=== PATIENT | male | born 1965 | race Hispanic/Latino ===

== ENCOUNTER 2020-04-03 15:19 | Emergency (ER) | payer MEDICAID ==
--- NOTE | 2020-04-03 12:31 | Anesthesia Consultation ---
Anesthesia Consult and Med Hx Date of service: 04/03/20 - Airway Anesthetic Teeth Evaluation: Good ROM Head & Neck: Adequate Mental/Hyoid Distance: Adequate Mallampati Class: Class III Intubation Access Assessment: Possibly Difficult - Pulmonary Exam CTA: Yes - Cardiac Exam Cardiac Exam: RRR - Pre-Operative Health Status ASA Pre-Surgery Classification: ASA3 Proposed Anesthetic Plan: General - Pulmonary Hx Smoking: Yes (1 PPD X 30 YRS) Hx Respiratory Symptoms: No Hx Sleep Apnea: No (ZEHRA PRE SCREEN HIGH RISK) - Cardiovascular System Hx Hypertension: Yes Hx Heart Attack/AMI: No - Central Nervous System CVA: Yes (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
--- NOTE | 2020-04-03 12:34 | Anesthesia Day of Surgery ---
Anesthesia Day of Surgery - Day of Surgery Patient Examined: Yes Patient H&P Reviewed: Yes Patient is NPO: Yes
[2020-04-03] MEDS: MIDAZOLAM 2 MG/2 ML INJ IV NR ×2 (13:05→13:45)
[2020-04-03] MEDS: fentaNYL 100 MCG/2 ML INJ IV SCH ×2 (13:12→13:45)
[~2020-04-03 15:19] MED LIST: ACETAMINOPHEN 500 MG TAB PO SCH; BUPIVACAINE/PF (0.5%) 5 MG/1 ML 30 ML VIAL INFILTRATI ONE; HEPARIN 5,000 UNIT/1 ML VIAL SUB-Q NR; HYDROmorphone 1 MG/1 ML INJ IV PRN; LACTATED RINGERS 1,000 ML IV SCH; LIDOCAINE 1.5% /EPINEPHRINE 1:200,000 AMP (5 ML) INFILTRATI ONE; LIDOCAINE 2%/EPINEPHRINE 1:100,000 VIAL (20 ML) INFILTRATI ONE; ONDANSETRON 4 MG/2 ML INJ IV PRN; SODIUM CHLORIDE 0.9% IRR 1,500 ML BOTTLE IR ONE; VANCOMYCIN 1,250 MG in SODIUM CHLORIDE 0.9% 250ML 250 ML IV NR; VANCOMYCIN 1,250 MG in SODIUM CHLORIDE 0.9% 500 ML 500 ML IV SCH
[2020-04-03] MEDS ORDERED: LIDOCAINE (1%) 10 MG/1 ML VIAL 20 ML MDV INFILTRATI ONE (16:09)
[2020-04-03] MEDS ORDERED: TETANUS,DIPHTHERIA TOXOID ADULT 0.5 ML INJ IM ONE (17:00)
[2020-04-03 17:33] VITALS: BP 153/72
--- NOTE | 2020-04-03 20:13 | Emergency Department Report ---
Abscess Boil HPI - HPI Chief Complaint: Skin/Abscess/Foreign Body Time Seen by Provider: 04/03/20 15:23 Duration: 2 Days Location: Other (Right upper back shoulder) Severity: Moderate History: Yes Pain, Yes Purulent Drainage, No Fever, No Numbness, No Foreign Body, No Previous History, No Insect Bite HPI: This is a 34-year-old male with a history of diverticulitis status post colonoscopy, hidradenitis who presents with right upper back shoulder abscess. The abscess began as a small pimple. The pimple was manipulated by patient. The swelling and redness increase. Patient had outpatient elective surgery plan to address hidradenitis involving the buttocks and groin. However when abscess was discovered today, surgery was postponed. Patient received vancomycin in preop area. He was transferred to the emergency department for management of the abscess. Patient has had multiple abscesses in his lifetime. However he has never needed incision and drainage. Unknown tetanus status. However patient refuses tetanus booster in the emergency department. Home Medications: Home Medications Medication Instructions Recorded Confirmed Last Taken Acetaminophen [Tylenol] 1,000 mg PO PRN PRN 03/26/20 04/03/20 04/02/20 Losartan [Cozaar] 50 mg PO QDAY 03/26/20 04/03/20 04/03/20 08:00 Previous Rx's Medication Instructions Recorded Last Taken Type Clindamycin [Clindamycin CAP] 300 mg PO TID 10 Days #30 cap 04/03/20 Unknown Rx Allergies/Adverse Reactions: Allergies Allergy/AdvReac Type Severity Reaction Status Date / Time Penicillins AdvReac Unknown Verified 03/26/20 12:49 ED Review of Systems ROS: Stated complaint: Other details as noted in HPI Comment: All other systems reviewed and negative Constitutional: denies: fever, malaise Respiratory: denies: cough, shortness of breath Gastrointestinal: denies: abdominal pain, nausea, vomiting Skin: rash, lesions ED Past Medical Hx - Past Medical History Previous Medical History?: Yes Hx Hypertension: Yes Hx Heart Attack/AMI: No Hx Liver Disease: No Hx Renal Disease: No Hx HIV: No Additional medical history: Diverticulitis status post bowel resection, hidradenitis - Surgical History Past Surgical History?: Yes Additional Surgical History: colostomy in 2019 - Social History Smoking Status: Current Every Day Smoker - Medications Home Medications: Home Medications Medication Instructions Recorded Confirmed Last Taken Type Acetaminophen [Tylenol] 1,000 mg PO PRN PRN 03/26/20 04/03/20 04/02/20 History Losartan [Cozaar] 50 mg PO QDAY 03/26/20 04/03/20 04/03/20 08:00 History Clindamycin [Clindamycin CAP] 300 mg PO TID 10 Days #30 cap 04/03/20 Unknown Rx ED Abscess Boil Physical Exam - Exam General: Vital signs noted. No distress. Alert and acting appropriately. Size: 3 cm Exam: Yes Tenderness, Yes Fluctuance, Yes Surrounding Cellulites/Erythema (5 cm of erythema in diameter), Yes Normal Neurologic Exam, Yes Normal Circulation, No Lymphangitis, No Crepitation, No Heart Murmur Exam: In general: Alert and oriented no acute distress. HEENT: Normocephalic atraumatic normal eye exam moist mucous membranes. Neck is supple no meningismus. Chest clear to rotation bilaterally no rales no rhonchi no wheezes. Cardiac regular rate and rhythm no murmurs. Right posterior shoulder region, 3 cm fluctuant abscess with 5 cm of total erythema in diameter I & D Note - I & D Note I & D Note: With verbal informed consent: I perform incision and drainage of abscess. I used 5 mL of 1% lidocaine to anesthetize the area. I used a #11 bl rebecca to create 2 cm vertical incision. Copious amount of purulent drainage expressed 10 mL in total. I used 30 mL of normal saline flush to irrigate the wound. I used 20 cm of quarter inch iodoform to pack the abscess ED Course Vital Signs 04/03/20 04/03/20 04/03/20 13:11 13:12 13:45 Temperature Pulse Rate Respiratory 20 20 20 Rate Blood Pressure Blood Pressure [Left] O2 Sat by Pulse Oximetry 04/03/20 04/03/20 04/03/20 15:20 15:23 16:03 Temperature 99.3 F Pulse Rate 97 H 84 Respiratory 18 18 18 Rate Blood Pressure 159/83 Blood Pressure 129/71 [Left] O2 Sat by Pulse 99 97 Oximetry 04/03/20 17:33 Temperature Pulse Rate 88 Respiratory 18 Rate Blood Pressure Blood Pressure 153/72 [Left] O2 Sat by Pulse 98 Oximetry Critical care attestation.: If time is entered above; I have spent that time in minutes in the direct care of this critically ill patient, excluding procedure time. ED Medical Decision Making - Medical Decision Making Right shoulder upper back complicated abscess with surrounding cellulitis patient refused tetanus booster. Prescribed clindamycin. Instructed to have packing change in [address] Mena patient's general surgeon came to the emergency department and agreed with plan and management of abscess. He instructed patient to follow-up in his office to reschedule surgery for hidradenitis. ED Disposition Clinical Impression: Shoulder abscess Disposition: TO HOME OR SELFCARE Is pt being admited?: No Does the pt Need Aspirin: No Condition: Stable Instructions: Skin Abscess, [id number], Incision and Drainage, Care After, Incision and Drainage Additional Instructions: Please have packing changed in 5 days. Please finish entire course of antibiotics. Prescriptions: Clindamycin [Clindamycin CAP] 300 mg PO TID 10 Days #30 cap Referrals: MARCIA MENA MD [Staff Physician] - 3-5 Days
== END 2020-04-03 17:41 | disposition home or self-care (01) ==
LOC: ED 15:19
DX: L02.413 Cutaneous abscess of right upper limb (principal); I10 Essential (primary) hypertension; F17.200 Nicotine dependence, unspecified, uncomplicated; Z98.890 Other specified postprocedural states; Z79.2 Long term (current) use of antibiotics; Z79.899 Other long term (current) drug therapy; Z88.0 Allergy status to penicillin
CPT/HCPCS: 10060; 90714; 96361; 96365; 96366; 96372; 96375; 99283; J1644; J2250; J3010; J3370; J7050; J7120; 90471; J7040